=== PATIENT | male | born 1935 | race Caucasian/White ===

== ENCOUNTER 2017-11-25 20:03 | Inpatient (IN) | payer OTHER ==
[~2017-11-25] VITALS: Ht 177.8 cm; Wt 74.9 kg
[~2017-11-25 20:03] MED LIST: LASIX; METFORMIN
[2017-11-25 20:05] VITALS: BP_SYST 169
[2017-11-25] MEDS ORDERED: NACL 0.9% 1,000 ML IV ONE (20:15)
[2017-11-25 20:42] LABS: BASOPHILS # (AUTO) 0.1 K/uL (0.0-0.2); BASOPHILS % (AUTO) 0.7 % (0.0-2.0); EOSINOPHILS # (AUTO) 0.1 K/uL (0.0-0.4); EOSINOPHILS % (AUTO) 0.9 % (0.0-4.0); HEMATOCRIT 34.5 % (36-54); HEMOGLOBIN 11.4 g/dL (14.0-18.0); LYMPHOCYTES # (AUTO) 1.2 K/uL (1.0-5.5); LYMPHOCYTES % (AUTO) 16.8 % (20.5-51.5); MEAN CORPUSCULAR HEMOGLOBIN 32 pg (27-31); MEAN CORPUSCULAR HGB CONC 33 % (32-36); MEAN CORPUSCULAR VOLUME 96 fL (79.0-98.0); MONOCYTES # (AUTO) 0.8 K/uL (0.0-1.0); MONOCYTES % (AUTO) 11.1 % (1.7-9.3); NEUTROPHILS % (AUTO) 70.5 % (40.0-70.0); PLATELET COUNT (AUTO) 99 K/uL (130-430); RED CELL DISTRIBUTION WIDTH 18.1 % (9.0-15.0); WHITE BLOOD COUNT (AUTO) 7.2 K/uL (4.8-10.8)
[2017-11-25 20:53] LABS: ANION GAP 7 (5-15); CALCIUM 8.4 mg/dL (8.4-11.0); CHLORIDE 100 mmol/L (98-107); CREATININE 1.56 mg/dL (0.55-1.30); GLUCOSE 170 mg/dL (70-99); POTASSIUM 3.6 mmol/L (3.5-5.1); SODIUM SERUM 136 mmol/L (136-145); UREA NITROGEN, BLOOD 15 mg/dL (8-21)
[2017-11-25] MEDS ORDERED: PIPERACILLIN/TAZOBACTAM 3.375 GM/VIAL (ZOSYN) IV ONE (20:56)
[2017-11-25 20:57] LABS: PROTHROMBIN TIME 10.5 SECS (9.5-12.5)
[2017-11-25] MEDS ORDERED: LEVOFLOXACIN 500 MG/D5W 100 ML IV ONE (21:00)
[2017-11-25] MEDS ORDERED: PIPERACILLIN/TAZO 3.375 GM in NS 50 ML IV ONE (21:00)
[2017-11-25 21:06] LABS: ALANINE AMINOTRANSFERASE 17 U/L (12-78); ALBUMIN 2.8 g/dL (3.4-4.8); ASPARTATE AMINOTRANSFERASE 33 U/L (10-37); DIGOXIN 1.2 ng/mL (0.80-2.00); TOTAL BILIRUBIN 0.6 mg/dL (0.0-1.0)
[2017-11-25] MEDS ORDERED: ASPIRIN 81 MG TAB.CHEW PO ONE (21:15)
[2017-11-25] MEDS ORDERED: ASPI81TA2 PO (21:38)
[2017-11-25] MEDS ORDERED: MEMA10TA12 PO (21:38)
[2017-11-25] MEDS ORDERED: NEPHRO AID (21:38)
[2017-11-25] MEDS ORDERED: INSU100V8 SUBCUT (21:38)
[2017-11-25] MEDS ORDERED: LEVE500T13 PO (21:38)
[2017-11-25] MEDS ORDERED: FOLI-43 PO (21:38)
[2017-11-25] MEDS ORDERED: SENN-153 PO (21:38)
[2017-11-25] MEDS ORDERED: SIMV40TA2 PO (21:38)
[2017-11-25] MEDS ORDERED: COR3.125 PO (21:38)
[2017-11-25] MEDS ORDERED: ALBU2.5V7 INH (21:38)
[2017-11-25] MEDS ORDERED: TAMS-11 PO (21:38)
[2017-11-25] MEDS ORDERED: FURO20TA4 PO (21:38)
[2017-11-25] MEDS ORDERED: DIGO125T4 PO (21:38)
[2017-11-25] MEDS ORDERED: FERR-57 PO (21:38)
[2017-11-25] MEDS ORDERED: PRO40 PO (21:38)
[2017-11-25] MEDS ORDERED: LISI-209 PO (21:38)
[2017-11-25] MEDS ORDERED: DEXTROSE 50% JECT 50 ML DISP.SYRIN IVP PRN (21:45)
[2017-11-25] MEDS: AZITHROMYCIN 500 MG in NS 250 ML IV SCH (21:45)
[2017-11-25] MEDS ORDERED: INSULIN REGULAR, HUMAN 100 UNITS/ML, 10 ML VIAL (novoLIN R) SUBCUT PRN (21:45)
[2017-11-25] MEDS ORDERED: ACETAMINOPHEN 325 MG TABLET PO PRN (21:45)
[2017-11-25] MEDS ORDERED: cefTRIAXone 1 GM in D5W 50 ML IV SCH (21:45)
[2017-11-25] MEDS ORDERED: ONDANSETRON HCL 4 MG/2 ML VIAL IVP PRN (21:45)
[2017-11-25 22:13] VITALS: BP_SYST 123
[2017-11-25 22:33] VITALS: BP_SYST 127
[2017-11-25] MEDS ORDERED: AZITHROMYCIN 500 MG/VIAL (ZITHROMAX) IV ONE (23:22)
[2017-11-25] MEDS ORDERED: cefTRIAXone 1 GM IVPB PREMIX 50 ML IV ONE (23:23)
[2017-11-25] MEDS: methylPREDNISolone SOD SUCC/PF 62.5 MG/ML VIAL IVP SCH (23:35)
[2017-11-26] VITALS: BP_SYST 111
[2017-11-26] MEDS: ALBUTEROL SULFATE 0.083% 2.5 MG/3 ML VIAL.NEB INH SCH ×4 (00:52→19:00)
[2017-11-26] MEDS: IPRATROPIUM BROM 0.5 MG/2.5 ML VIAL.NEB (ATROVENT) INH SCH ×5 (00:53→23:59)
[2017-11-26] MEDS: methylPREDNISolone SOD SUCC/PF 62.5 MG/ML VIAL IVP SCH ×3 (06:14→21:45)
[2017-11-26 08:30] VITALS: BP_SYST 137
[2017-11-26] MEDS ORDERED: LISINOPRIL 5 MG TABLET PO ONE (10:00)
[2017-11-26] MEDS ORDERED: levETIRAcetam 500 MG TABLET PO ONE (10:00)
[2017-11-26] MEDS ORDERED: DEXTROSE 50% JECT 50 ML DISP.SYRIN IVP PRN (10:00)
[2017-11-26] MEDS ORDERED: CARVEDILOL 3.125 MG TABLET (COREG) PO ONE (10:00)
[2017-11-26] MEDS ORDERED: TAMSULOSIN HCL 0.4 MG CAP PO ONE (10:00)
[2017-11-26] MEDS ORDERED: ASPIRIN 81 MG TAB.CHEW PO ONE (10:00)
[2017-11-26] MEDS: PIPERACILLIN/TAZO 2.25G/DEX-IS 50 ML IV SCH ×2 (11:53→18:00)
[2017-11-26] MEDS: INSULIN REGULAR, HUMAN 100 UNITS/ML, 10 ML VIAL (novoLIN R) SUBCUT PRN ×2 (11:57→18:01)
[2017-11-26 12:07] VITALS: BP_SYST 147
[2017-11-26 16:03] VITALS: BP_SYST 123
[2017-11-26 20:50] VITALS: BP_SYST 126
[2017-11-26] MEDS: levETIRAcetam 500 MG TABLET PO SCH (21:45)
[2017-11-26] MEDS: SIMVASTATIN 40 MG TABLET PO SCH (21:45)
[2017-11-26] MEDS: AZITHROMYCIN 500 MG in NS 250 ML IV SCH (21:46)
[2017-11-26] MEDS: CARVEDILOL 3.125 MG TABLET (COREG) PO SCH (21:50)
[2017-11-27] MEDS: PIPERACILLIN/TAZO 2.25G/DEX-IS 50 ML IV SCH ×5 (00:25→23:58)
[2017-11-27 01:29] VITALS: BP_SYST 126
[2017-11-27] MEDS: methylPREDNISolone SOD SUCC/PF 62.5 MG/ML VIAL IVP SCH (05:47)
[2017-11-27 06:25] LABS: BASOPHILS % (AUTO) 0.1 % (0.0-2.0); HEMATOCRIT 30.9 % (36-54); HEMOGLOBIN 10.5 g/dL (14.0-18.0); LYMPHOCYTES # (AUTO) 0.7 K/uL (1.0-5.5); LYMPHOCYTES % (AUTO) 20.4 % (20.5-51.5); MEAN CORPUSCULAR HEMOGLOBIN 33 pg (27-31); MEAN CORPUSCULAR HGB CONC 34 % (32-36); MEAN CORPUSCULAR VOLUME 95 fL (79.0-98.0); MONOCYTES # (AUTO) 0.6 K/uL (0.0-1.0); MONOCYTES % (AUTO) 17.7 % (1.7-9.3); NEUTROPHILS % (AUTO) 61.8 % (40.0-70.0); RED BLOOD CELL COUNT(AUTO) 3.25 MIL/uL (4.2-6.2); RED CELL DISTRIBUTION WIDTH 17.5 % (9.0-15.0); WHITE BLOOD COUNT (AUTO) 3.3 K/uL (4.8-10.8)
[2017-11-27 07:13] LABS: ALANINE AMINOTRANSFERASE 16 U/L (12-78); ALBUMIN 2.5 g/dL (3.4-4.8); ANION GAP 4 (5-15); ASPARTATE AMINOTRANSFERASE 32 U/L (10-37); CALCIUM 8.4 mg/dL (8.4-11.0); CHLORIDE 102 mmol/L (98-107); CREATININE 1.82 mg/dL (0.55-1.30); GLUCOSE 127 mg/dL (70-99); POTASSIUM 3.9 mmol/L (3.5-5.1); SODIUM SERUM 137 mmol/L (136-145); TOTAL BILIRUBIN 0.5 mg/dL (0.0-1.0); UREA NITROGEN, BLOOD 15 mg/dL (8-21)
[2017-11-27 08:03] VITALS: BP_SYST 126
[2017-11-27] MEDS: IPRATROPIUM BROM 0.5 MG/2.5 ML VIAL.NEB (ATROVENT) INH SCH ×3 (08:18→19:39)
[2017-11-27] MEDS: ALBUTEROL SULFATE 0.083% 2.5 MG/3 ML VIAL.NEB INH SCH ×4 (08:18→19:39)
[2017-11-27] MEDS: levETIRAcetam 500 MG TABLET PO SCH ×2 (08:29→20:22)
[2017-11-27] MEDS: MEMANTINE HCL 5 MG TABLET PO SCH (08:29)
[2017-11-27] MEDS: PANTOPRAZOLE SODIUM 40 MG TAB PO SCH (08:30)
[2017-11-27] MEDS: ASPIRIN 81 MG TAB.CHEW PO SCH (08:30)
[2017-11-27] MEDS: LISINOPRIL 5 MG TABLET PO SCH (08:31)
[2017-11-27] MEDS: TAMSULOSIN HCL 0.4 MG CAP PO SCH (08:31)
[2017-11-27] MEDS: CARVEDILOL 3.125 MG TABLET (COREG) PO SCH ×2 (08:32→20:22)
[2017-11-27 08:46] LABS: PLATELET COUNT (AUTO) 79 K/uL (130-430)
[2017-11-27 11:34] VITALS: BP_SYST 111
[2017-11-27] MEDS: INSULIN REGULAR, HUMAN 100 UNITS/ML, 10 ML VIAL (novoLIN R) SUBCUT PRN ×2 (11:46→23:59)
[2017-11-27 15:32] VITALS: BP_SYST 104
[2017-11-27 20:00] VITALS: BP_SYST 122
[2017-11-27] MEDS: AZITHROMYCIN 500 MG in NS 250 ML IV SCH (20:21)
[2017-11-27] MEDS: SIMVASTATIN 40 MG TABLET PO SCH (20:22)
[2017-11-27] MEDS: PREDNISONE 20 MG TABLET PO SCH (20:23)
[2017-11-28] MEDS: ALBUTEROL SULFATE 0.083% 2.5 MG/3 ML VIAL.NEB INH SCH ×4 (00:17→20:44)
[2017-11-28] MEDS: IPRATROPIUM BROM 0.5 MG/2.5 ML VIAL.NEB (ATROVENT) INH SCH ×4 (00:17→20:44)
[2017-11-28 00:55] VITALS: BP_SYST 118
[2017-11-28] MEDS: INSULIN REGULAR, HUMAN 100 UNITS/ML, 10 ML VIAL (novoLIN R) SUBCUT PRN ×2 (05:47→12:37)
[2017-11-28] MEDS: PIPERACILLIN/TAZO 2.25G/DEX-IS 50 ML IV SCH ×3 (05:48→18:35)
[2017-11-28 07:09] LABS: ANION GAP 6 (5-15); CALCIUM 7.9 mg/dL (8.4-11.0); CHLORIDE 101 mmol/L (98-107); CREATININE 2.46 mg/dL (0.55-1.30); GLUCOSE 131 mg/dL (70-99); POTASSIUM 3.8 mmol/L (3.5-5.1); SODIUM SERUM 138 mmol/L (136-145); UREA NITROGEN, BLOOD 30 mg/dL (8-21)
[2017-11-28 07:16] LABS: BASOPHILS % (AUTO) 0.1 % (0.0-2.0); HEMATOCRIT 31.9 % (36-54); HEMOGLOBIN 10.6 g/dL (14.0-18.0); LYMPHOCYTES # (AUTO) 0.8 K/uL (1.0-5.5); MEAN CORPUSCULAR HEMOGLOBIN 32 pg (27-31); MEAN CORPUSCULAR HGB CONC 33 % (32-36); MEAN CORPUSCULAR VOLUME 96 fL (79.0-98.0); MONOCYTES # (AUTO) 0.5 K/uL (0.0-1.0); MONOCYTES % (AUTO) 9.4 % (1.7-9.3); NEUTROPHILS # (AUTO) 3.8 K/uL (1.8-7.7); NEUTROPHILS % (AUTO) 75.5 % (40.0-70.0); PLATELET COUNT (AUTO) 101 K/uL (130-430); RED BLOOD CELL COUNT(AUTO) 3.32 MIL/uL (4.2-6.2); RED CELL DISTRIBUTION WIDTH 17.6 % (9.0-15.0); WHITE BLOOD COUNT (AUTO) 5.1 K/uL (4.8-10.8)
[2017-11-28 07:18] LABS: ALANINE AMINOTRANSFERASE 11 U/L (12-78); ALBUMIN 2.3 g/dL (3.4-4.8); ASPARTATE AMINOTRANSFERASE 21 U/L (10-37); PHOSPHORUS 3.4 mg/dL (2.7-4.5); TOTAL BILIRUBIN 0.4 mg/dL (0.0-1.0)
[2017-11-28] MEDS: PREDNISONE 20 MG TABLET PO SCH ×2 (09:38→20:20)
[2017-11-28] MEDS: levETIRAcetam 500 MG TABLET PO SCH ×2 (09:38→20:20)
[2017-11-28] MEDS: TAMSULOSIN HCL 0.4 MG CAP PO SCH (09:38)
[2017-11-28] MEDS: MEMANTINE HCL 5 MG TABLET PO SCH (09:38)
[2017-11-28] MEDS: ASPIRIN 81 MG TAB.CHEW PO SCH (09:40)
[2017-11-28] MEDS: PANTOPRAZOLE SODIUM 40 MG TAB PO SCH (09:40)
[2017-11-28] MEDS: CARVEDILOL 3.125 MG TABLET (COREG) PO SCH ×2 (09:40→20:20)
[2017-11-28] MEDS: LISINOPRIL 5 MG TABLET PO SCH (09:40)
[2017-11-28 12:29] VITALS: BP_SYST 120
[2017-11-28 13:55] VITALS: BP_SYST 120
[2017-11-28 16:49] VITALS: BP_SYST 94
[2017-11-28 20:00] VITALS: BP_SYST 114
[2017-11-28] MEDS: SIMVASTATIN 40 MG TABLET PO SCH (20:20)
[2017-11-28] MEDS: AZITHROMYCIN 500 MG in NS 250 ML IV SCH (20:21)
[2017-11-29] MEDS: PIPERACILLIN/TAZO 2.25G/DEX-IS 50 ML IV SCH ×5 (00:22→23:16)
[2017-11-29 00:56] VITALS: BP_SYST 105
[2017-11-29] MEDS: ALBUTEROL SULFATE 0.083% 2.5 MG/3 ML VIAL.NEB INH SCH ×4 (01:23→19:00)
[2017-11-29] MEDS: IPRATROPIUM BROM 0.5 MG/2.5 ML VIAL.NEB (ATROVENT) INH SCH ×4 (01:23→19:00)
[2017-11-29 09:20] VITALS: BP_SYST 114
[2017-11-29] MEDS: ASPIRIN 81 MG TAB.CHEW PO SCH (09:41)
[2017-11-29] MEDS: LISINOPRIL 5 MG TABLET PO SCH (09:41)
[2017-11-29] MEDS: MEMANTINE HCL 5 MG TABLET PO SCH (09:41)
[2017-11-29] MEDS: PREDNISONE 20 MG TABLET PO SCH ×2 (09:42→21:08)
[2017-11-29] MEDS: TAMSULOSIN HCL 0.4 MG CAP PO SCH (09:42)
[2017-11-29] MEDS: CARVEDILOL 3.125 MG TABLET (COREG) PO SCH ×2 (09:42→21:09)
[2017-11-29] MEDS: PANTOPRAZOLE SODIUM 40 MG TAB PO SCH (09:42)
[2017-11-29] MEDS: levETIRAcetam 500 MG TABLET PO SCH ×2 (09:42→21:08)
[2017-11-29] MEDS: ALBUTEROL SULFATE 0.083% 2.5 MG/3 ML VIAL.NEB INH PRN ×2 (09:45→21:09)
[2017-11-29] MEDS: IPRATROPIUM BROM 0.5 MG/2.5 ML VIAL.NEB (ATROVENT) INH PRN ×2 (09:45→21:09)
[2017-11-29 11:24] VITALS: BP_SYST 111
[2017-11-29 15:37] VITALS: BP_SYST 106
[2017-11-29] MEDS ORDERED: PRED20TA PO ×2 (15:38→15:39)
[2017-11-29] MEDS ORDERED: LEVO500T20 PO (15:40)
[2017-11-29 20:30] VITALS: BP_SYST 108
[2017-11-29] MEDS: SIMVASTATIN 40 MG TABLET PO SCH (21:08)
[2017-11-29] MEDS: AZITHROMYCIN 500 MG in NS 250 ML IV SCH (21:09)
[2017-11-29] MEDS: INSULIN REGULAR, HUMAN 100 UNITS/ML, 10 ML VIAL (novoLIN R) SUBCUT PRN (23:19)
[2017-11-29 23:52] VITALS: BP_SYST 91
[2017-11-30] MEDS: IPRATROPIUM BROM 0.5 MG/2.5 ML VIAL.NEB (ATROVENT) INH SCH ×4 (01:22→20:26)
[2017-11-30] MEDS: ALBUTEROL SULFATE 0.083% 2.5 MG/3 ML VIAL.NEB INH SCH ×4 (01:22→20:26)
[2017-11-30] MEDS: PIPERACILLIN/TAZO 2.25G/DEX-IS 50 ML IV SCH ×3 (05:06→17:36)
[2017-11-30] MEDS: INSULIN REGULAR, HUMAN 100 UNITS/ML, 10 ML VIAL (novoLIN R) SUBCUT PRN (05:10)
[2017-11-30 07:45] VITALS: BP_SYST 120
[2017-11-30] MEDS: CARVEDILOL 3.125 MG TABLET (COREG) PO SCH ×3 (09:00→21:00)
[2017-11-30] MEDS: LISINOPRIL 5 MG TABLET PO SCH ×2 (09:00→10:18)
[2017-11-30] MEDS: TAMSULOSIN HCL 0.4 MG CAP PO SCH (10:16)
[2017-11-30] MEDS: ASPIRIN 81 MG TAB.CHEW PO SCH (10:17)
[2017-11-30] MEDS: PREDNISONE 20 MG TABLET PO SCH ×2 (10:17→21:59)
[2017-11-30] MEDS: levETIRAcetam 500 MG TABLET PO SCH ×2 (10:18→21:59)
[2017-11-30] MEDS: PANTOPRAZOLE SODIUM 40 MG TAB PO SCH (10:28)
[2017-11-30] MEDS: MEMANTINE HCL 5 MG TABLET PO SCH (10:28)
[2017-11-30 12:10] VITALS: BP_SYST 146
[2017-11-30] MEDS ORDERED: LEVO250T20 PO (13:01)
[2017-11-30] MEDS ORDERED: L.RH1CAP PO (13:02)
[2017-11-30 15:54] VITALS: BP_SYST 103
[2017-11-30] MEDS ORDERED: HEPARIN SODIUM, PORCINE 10,000 UNITS/ 10 ML VIAL MC ONE (16:30)
[2017-11-30 16:44] VITALS: BP_SYST 95
[2017-11-30 19:55] VITALS: BP_SYST 95
[2017-11-30] MEDS: SIMVASTATIN 40 MG TABLET PO SCH (21:59)
[2017-12-01] MEDS: PIPERACILLIN/TAZO 2.25G/DEX-IS 50 ML IV SCH ×2 (00:05→05:51)
[2017-12-01] MEDS: INSULIN REGULAR, HUMAN 100 UNITS/ML, 10 ML VIAL (novoLIN R) SUBCUT PRN (00:13)
[2017-12-01 00:48] VITALS: BP_SYST 106
[2017-12-01] MEDS: ALBUTEROL SULFATE 0.083% 2.5 MG/3 ML VIAL.NEB INH SCH ×2 (01:23→07:33)
[2017-12-01] MEDS: IPRATROPIUM BROM 0.5 MG/2.5 ML VIAL.NEB (ATROVENT) INH SCH ×2 (01:24→07:33)
[2017-12-01 07:35] VITALS: BP_SYST 103
[2017-12-01] MEDS: TAMSULOSIN HCL 0.4 MG CAP PO SCH (08:27)
[2017-12-01] MEDS: PREDNISONE 20 MG TABLET PO SCH (08:27)
[2017-12-01] MEDS: ASPIRIN 81 MG TAB.CHEW PO SCH (08:27)
[2017-12-01] MEDS: levETIRAcetam 500 MG TABLET PO SCH (08:27)
[2017-12-01] MEDS: PANTOPRAZOLE SODIUM 40 MG TAB PO SCH (08:27)
[2017-12-01] MEDS: MEMANTINE HCL 5 MG TABLET PO SCH (08:39)
[2017-12-01] MEDS: LISINOPRIL 5 MG TABLET PO SCH (08:40)
== END 2017-12-01 10:50 | disposition home health service (06) | DRG 871 ==
LOC: SED 20:03 → STU 21:39 → SMU 11-28 16:52
PROVIDERS: ADMIT Internal Medicine Hospice and Palliative Medicine; ATTEND Internal Medicine Hospice and Palliative Medicine
PROC: 5A1D70Z Performance of Urinary Filtration, Intermittent, Less than 6 Hours Per Day (ICD-10-PCS; principal; 2017-11-26)
PROC: 5A1D70Z Performance of Urinary Filtration, Intermittent, Less than 6 Hours Per Day (ICD-10-PCS; 2017-11-28)
PROC: 5A1D70Z Performance of Urinary Filtration, Intermittent, Less than 6 Hours Per Day (ICD-10-PCS; 2017-11-30)
DX: A41.9 Sepsis, unspecified organism (principal); J18.9 Pneumonia, unspecified organism; I21.4 Non-ST elevation (NSTEMI) myocardial infarction; G93.41 Metabolic encephalopathy; I13.2 Hypertensive heart and chronic kidney disease with heart failure and with stage 5 chronic kidney disease, or end stage renal disease; E11.22 Type 2 diabetes mellitus with diabetic chronic kidney disease; I48.2 Chronic atrial fibrillation; D69.6 Thrombocytopenia, unspecified; I50.9 Heart failure, unspecified; N18.6 End stage renal disease; J44.0 Chronic obstructive pulmonary disease with (acute) lower respiratory infection; J44.1 Chronic obstructive pulmonary disease with (acute) exacerbation; F03.90 Unspecified dementia, unspecified severity, without behavioral disturbance, psychotic disturbance, mood disturbance, and anxiety; G40.909 Epilepsy, unspecified, not intractable, without status epilepticus; G47.33 Obstructive sleep apnea (adult) (pediatric); I25.10 Atherosclerotic heart disease of native coronary artery without angina pectoris; K57.90 Diverticulosis of intestine, part unspecified, without perforation or abscess without bleeding; D63.1 Anemia in chronic kidney disease; I25.2 Old myocardial infarction; Z86.718 Personal history of other venous thrombosis and embolism; Z87.891 Personal history of nicotine dependence; Z98.41 Cataract extraction status, right eye; Z99.2 Dependence on renal dialysis; Z88.8 Allergy status to other drugs, medicaments and biological substances; Z79.899 Other long term (current) drug therapy; Z79.82 Long term (current) use of aspirin; Z95.0 Presence of cardiac pacemaker
CPT/HCPCS: 36415; 36600; 71045; 73560-TC; 80048; 80053; 80162-TC; 82803-TC; 82962; 83605; 83880; 84100-TC; 84484; 85025; 85610-TC; 85730-TC; 87040-TC; 87081; 87340; 90935; 90937; 93005; 93306; 94640; 94760; 96361; 96365; 96368; 97110-GP; 97116-GP; 97530-GP; 99285; J0456; J0696; J1956; J2543; J2930; J7030; J7050; J7060; J7512